=== PATIENT | female | born 1950 | race Caucasian/White ===

== ENCOUNTER 2017-11-12 04:52 | Emergency (ER) | payer MEDICARE, SELFPAY ==
[2017-11-12 04:52] VITALS: BP 138/77; PULSE 59; RESP 16; TEMP 36.5; O2SAT 100; BMI 26.8
[2017-11-12 04:56] VITALS: O2SAT 98
--- NOTE | 2017-11-12 05:13 | RAD_ITS ---
STUDY: X-RAY - LEFT KNEE REASON FOR EXAM: Female, 66 years old. Fall down the steps yesterday. Pain in the lateral side of the knee. TECHNIQUE: 3 view(s) of the knee. COMPARISON: None. FINDINGS: There is periarticular demineralization of the visualized distal femur, proximal tibia and fibula. Normal proximal tibiofibular articulation. There is no demonstrated fracture. There is mild degenerative arthrosis of the medial femorotibial compartment. There is mild degenerative arthrosis of the lateral femorotibial compartment. There is moderate degenerative arthrosis of the patellofemoral articulation. There is a soft tissue prominence in the suprapatellar region suggesting a small volume joint effusion. Anteriorly there is soft tissue edema/swelling of the knee. RAD/Knee 3 Views IMPRESSION: 1. Degenerative arthrosis. 2. No demonstrated acute osseous injury or dislocation. 3. Joint effusion. 4. Anteriorly/medially soft tissue swelling of the left knee. Electronically Signed: Wong Cook MD at 6:31 EDT Tel , Service support ,
--- NOTE | 2017-11-12 05:13 | RAD_ITS ---
STUDY: X-RAY - LUMBAR SPINE REASON FOR EXAM: Female, 66 years old. Fall down steps yesterday. Pain. TECHNIQUE: 3 view(s) of the lumbar spine were obtained. COMPARISON: None FINDINGS: Normal lumbar lordosis. There is no substantial scoliosis. There is a normal alignment of the vertebrae. There is generalized demineralization of the vertebral bodies. There is endplate sclerosis, marginal osteophyte formation and disc space narrowing at L2-L3 and L5-S1 levels. There is no demonstrated fracture. There is lumbosacral mild degenerative facet arthrosis. Possible neural foraminal stenosis at L5-S1. The soft tissue structures are unremarkable. Increased visualized colonic stool volume. RAD/Lumbar Spine 2 or 3 Views IMPRESSION: 1. Degenerative changes of the spine, as detailed above. 2. No demonstrated lumbar vertebral fracture or subluxation. Electronically Signed: Wong Cook MD at 6:40 EDT Tel , Service support ,
--- NOTE | 2017-11-12 05:15 | ED.VISSUMM ---
- ER Visit Summary Date of Service: 11/12/17 Chief Complaint: Fall with lower back and left knee pain History of Present Illness: The patient is a 66 F no significant past medical history. Has had a prior hysterectomy. Is currently on no medications. She was walking outside down wooden steps to feed her cats. She slipped missed a step and landed at the bottom. Patient complaining of pain to her low back and left knee. Denies hitting her head. No LOC. She is on no blood thinners. She denies neck pain. She denies any chest or abdominal pain. This occurred Monday afternoon. Physical Examination: Well-appearing older female. Vital signs are stable afebrile. Pulse ox 90% on room air no signs of hypoxia. HEENT exam is atraumatic. Pupils round reactive to light. There is no signs of trauma to her face or scalp. Is nontender. C-spine and T-spine are nontender. She has mild LS-spine tenderness. No ecchymosis or bruising. She has full range of motion to her neck trachea is nontender. Lungs clear to auscultation bilaterally. Heart regular rate and rhythm no murmur. Chest wall is nontender posterior ribs are nontender. There is no ecchymosis or bruising or subcu air. Abdomen is soft and nontender. No signs of trauma. Pelvic girdle intact. She is moving all 4 extremities. They are neurovascularly intact. There is no deformities. She has full range of motion of both upper extremities and 5 out of 5 production planner strength bilaterally with normal touch sensation. The lower extremities the right lower extremities unremarkable left hip ankle and foot are nontender neurovascular intact with full range of motion. She has mild tenderness to her left lateral knee. There is no gross bony deformity. No swelling or effusion. She is able to flex and extend at the left knee. The extensor mechanism is intact. Neurologic exam is normal. GCS of 15. She is awake alert following commands. Has no motor deficits. Test Results: LS-spine shows no acute fracture. No acute injury. Chronic changes. Patient also had a left knee x-ray which showed some arthritic changes but no acute process. No fracture or dislocation. Emergency Department Course and Treatment: Clinically the patient looks good. She took a fall on Monday. We are obtaining x-rays. She did not want anything currently for pain. Treatment Plan: Repeat exam patient is doing well at 05 32. He will be discharged to home. Disposition: Discharge Impression: Acute fall down several steps Lumbar contusion Left knee contusion / sprain This note was generated with [employer] dictation software. It may contain incorrect words, spelling, and punctuation that were not noted in review of the chart prior to signing ED Disposition - Plan for ED Patient: Chief Complaint: Fall Referrals: Rosalba Akins MD [Primary Care Provider] -
--- NOTE | 2017-11-12 05:33 | ED.DEP ---
ED Disposition - Plan for ED Patient: Disposition: Home or Assisted Living Chief Complaint: Fall Instructions: ED Contusion Back, ED Sprain Knee Referrals: Rosalba Akins MD [Primary Care Provider] - 1 Week if not improving Additional Instructions: Ice all sore areas down. To decrease pain and inflammation. Tylenol and Motrin for pain and inflammation. Follow-up your primary care physician if not improving or return to ER feeling worse.
[2017-11-12 05:41] VITALS: PULSE 66; RESP 16; O2SAT 96
== END 2017-11-12 05:41 | disposition home or self-care (01) ==
PROVIDERS: Emergency Provider Emergency Medicine; Family Provider Internal Medicine; PCP Internal Medicine
DX: S83.92XA Sprain of unspecified site of left knee, initial encounter (principal); S30.0XXA Contusion of lower back and pelvis, initial encounter; S80.02XA Contusion of left knee, initial encounter; W10.9XXA Fall (on) (from) unspecified stairs and steps, initial encounter; Y93.01 Activity, walking, marching and hiking; Y92.9 Unspecified place or not applicable; Y99.9 Unspecified external cause status; Z90.710 Acquired absence of both cervix and uterus
CPT/HCPCS: 72100; 73562; 99282

== ENCOUNTER → 2018-02-26 15:30 | Outpatient (CLI) | payer MEDICARE, SELFPAY ==
[2018-02-26 15:42] LABS: Absolute Lymphocyte Count 1.52 X10^3/ul (0.83-4.51); Absolute Neutrophil Count 4.3 X10^3/uL (2.0-7.7); Basophil# 0.05 X10^3/uL; Basophil% 0.8 % (0-1); Eosinophil# 0.13 X10^3/uL; Hematocrit 36.4 % (37-47); Hemoglobin 11.9 g/dl (12.0-15.0); Lymphocyte # 1.52 X10^3/ul (4.0); Lymphocyte % 23.9 % (19-41); Mean Corp Hgb Conc 32.7 g/gl (32-36); Mean Corpuscular Hgb 30.6 pg (27.0-32.0); Mean Corpuscular Volume 93.6 fL (81-99); Mean Platelet Vol. 9.4 fl (6.2-12.0); Monocyte# 0.38 X10^3/uL; Neutrophil # 4.26 X10^3/uL (2.7-7.7); Neutrophil % 67.1 % (47-70); POSITIVE COUNT NO; POSITIVE DIFFERENTIAL NO; POSITIVE MORPHOLOGY NO; Platelet Count 284 K/mm3 (150-450); RBC Distribution Width CV 13.9 % (11.6-14.6); RBC Distribution Width SD 47.4 fl (35.1-43.9); Red Blood Count 3.89 M/mm3 (4.2-5.4); White Blood Count 6.4 K/mm3 (4.4-11.0)
[2018-02-26 16:29] LABS: ALB/GLOB Ratio 1.2 RATIO (0.9-2.4); AST(SGOT) 30 U/L (15-37); Alanine Aminotransfer ALT/SGPT 46 U/L (13-56); Albumin, Serum 3.9 g/dL (3.2-5.0); Alkaline Phosphatase 73 U/L (45-117); Anion Gap 7 (5-15); BUN 20 mg/dL (7-18); BUN/Creat Ratio 18.7 RATIO (10-20); CRP < 2.90 mg/L (0.0-3.0); Calcium,Total 9.1 mg/dL (8.5-10.1); Chloride 110 mmol/L (98-107); Creatinine, Serum 1.07 mg/dL (0.55-1.02); EST Glomerular Filtration Rate 54 mL/min (>60); Est Glom Filt Rate - Afr Amer 66 mL/min (>60); Globulin 3.2 g/dL (2.2-4.2); Glucose 105 mg/dL (74-106); Potassium 3.6 mmol/L (3.5-5.1); Protein, Total 7.1 g/dL (6.4-8.2); Sodium Level 143 mmol/L (136-145)
[2018-02-26 16:32] LABS: Erythrocyte Sedimentation Rate 5 mm/hr (0-30)
== END ==
PROVIDERS: Family Provider Internal Medicine; PCP Internal Medicine
DX: M25.50 Pain in unspecified joint (principal)
CPT/HCPCS: 80053; 85025; 85652; 86140

== ENCOUNTER 2018-05-09 09:10 | Emergency (ER) | payer MEDICARE, SELFPAY ==
[2018-05-09 09:11] VITALS: BP 158/75; PULSE 58; RESP 19; TEMP 37.3; O2SAT 100; BMI 27.3
--- NOTE | 2018-05-09 09:32 | EKG12_ITS ---
Test Reason : NUMBNESS Blood Pressure : / mmHG Vent. Rate : 052 BPM Atrial Rate : 052 BPM P-R Int : 156 ms QRS Dur : 094 ms QT Int : 464 ms P-R-T Axes : 031 014 001 degrees QTc Int : 431 ms Sinus bradycardia Otherwise normal ECG Confirmed by RICKIE MINAYA, GAVIN ([id number]), assignment editor KAMI SESAY ([id number]) on 05/11/2018 1:23:31 PM Referred By: JAZIEL Confirmed By:GAVIN DAMIAN MD
--- NOTE | 2018-05-09 09:32 | CT_ITS ---
STUDY: CT BRAIN WITHOUT CONTRAST REASON FOR EXAM: Female, 67 years old. Left arm numbness. Hypertension. RADIATION DOSAGE (If Supplied By Facility): CTDIvol = ( 44.99 ) mGy, DLP = ( 745.49 ) mGycm TECHNIQUE: Transaxial CT imaging of the brain was performed without administration of intravenous contrast material. Individualized dose optimization techniques were used for this CT. COMPARISON: None. FINDINGS: Normal soft tissue structures. Normal calvarium. Normal size ventricles and extra-axial spaces for the patient's age. Normal white matter tracts of the cerebral hemispheres. Normal basal ganglia and thalami. Normal brainstem. Normal cerebellum. There is no intracranial hemorrhage. There are no findings of an acute ischemic infarction. Minimal mucosal thickening of the medial wall of the left maxillary sinus. CT/Brain/Head without Contrast IMPRESSION: Minimal mucosal thickening of the medial wall of the left maxillary sinus. Electronically Signed: Flash Moody MD at 10:34 EDT Tel [phone], Service support ,
--- NOTE | 2018-05-09 09:32 | RAD_ITS ---
STUDY: X-RAY CHEST REASON FOR EXAM: Female, 67 years old. Cough. TECHNIQUE: PA and lateral views of the chest. COMPARISON: None. FINDINGS: Hyperinflation. Scattered calcified granulomas more prominent on the right side. There is no demonstrated pleural abnormality. Normal size heart. Normal mediastinum and adalgisa. Normal visualized pulmonary arteries. There is atherosclerotic tortuosity of the aortic arch and descending thoracic aorta. There are diffuse degenerative changes of the visualized thoracic spine. Normal visualized ribs, clavicles, and shoulders. There is no demonstrated abnormality of the visualized soft tissue structures of the upper abdomen. RAD/Chest PA and Lateral IMPRESSION: Hyperinflation. No acute abnormality is seen. Electronically Signed: Flash Moody MD at 10:36 EDT Tel [phone], Service support ,
--- NOTE | 2018-05-09 09:33 | CT_ITS ---
STUDY: CT CERVICAL SPINE WITHOUT CONTRAST REASON FOR EXAM: Female, 67 years old. Left arm numbness. Hypertension. RADIATION DOSAGE (If Supplied By Facility): CTDIvol = ( 18.61 ) mGy, DLP = ( 352.09 ) mGycm TECHNIQUE: High resolution transaxial imaging was performed without contrast material. Sagittal and coronal images were reconstructed. Individualized dose optimization techniques were used for this CT. COMPARISON: None FINDINGS: Normal craniovertebral junction. There are degenerative changes of the anterior atlantoaxial articulation. Normal odontoid process. Normal cervical lordosis. Normal vertebral bodies and posterior osseous elements. C2-3: Normal endplates. Normal disc height and morphology. Normal central canal and intervertebral neuroforamina. C3-4: Normal endplates. Normal disc height and morphology. Normal central canal and intervertebral neuroforamina. C4-5: Moderate degree of disc space narrowing with spondylosis. Uncovertebral arthrosis. Mild degree of bilateral neural foraminal stenosis worse on the right side. C5-6: Mild degree of disc space narrowing. Minimal anterior osteophyte formation. No significant stenosis seen. C6-7: Moderate degree of disc space narrowing with spondylosis. Uncovertebral arthrosis. Moderate degree of bilateral neural foraminal stenosis slightly worse on the left side. Normal visualized soft tissue structures. CT/Spine Cervical without Contras IMPRESSION: Multilevel degenerative changes, as described above. Electronically Signed: Flash Moody MD at 10:33 EDT Tel [phone], Service support ,
--- NOTE | 2018-05-09 09:37 | ED.VISSUMM ---
- ER Visit Summary Date of Service: 05/09/18 Chief Complaint: Pins and needles sensation from the neck down History of Present Illness: The patient is a 67 F who states that for the past week she has had a pins and needle sensation in her body from the neck down. Patient denies any muscle weakness or balance issues. She notes an intermittent headache. No trauma. No vision, hearing, swallowing/speaking, urinary, bowel changes. No chest pain or shortness of breath. She denies any history of optic neuritis urinary retention. No rashes. No exertional issues. She notes a slight weight gain. No rashes. Physical Examination: Afebrile vital signs are stable Gen: Well-nourished well-developed Head: Normocephalic atraumatic Eyes: Perrl EOMI ENT: TMs clear no rhinorrhea moist mucous membranes Neck: Supple no lymphadenopathy no JVD nontender CVS: Regular rate rhythm no murmurs normal S1-S2 Respiratory: No distress clear to auscultation bilaterally chest nontender Abdomen: Soft nontender nondistended normal bowel sounds no masses Back: Nontender Extremity: Nontender no edema Skin: Normal color no rash Neuro: alert orientated ?3 CN II-XII intact normal strength sensation reflexes gait cerebellar Psych: Normal affect normal mood Test Results: CBC CMP were normal. EKG showed a sinus bradycardia. CT of the head and cervical spine show degenerative changes. Emergency Department Course and Treatment: I do not see anything emergent going on today and she has no focal neurologic deficit to warrant emergent MRI. I would encourage her to follow-up with her primary care physician and if symptoms persist she may need further neurologic evaluation. Patient is comfortable with her plan Impression: 1. Paresthesias This note was generated with [employer] dictation software. It may contain incorrect words, spelling, and punctuation that were not noted in review of the chart prior to signing ED Disposition - Plan for ED Patient: Disposition: Home or Assisted Living Chief Complaint: Numb/Ting Instructions: ED Paraesthesias Referrals: Rosalba Akins MD [Primary Care Provider] - 1 Week
[2018-05-09 10:01] LABS: Absolute Lymphocyte Count 1.62 X10^3/ul (0.83-4.51); Absolute Neutrophil Count 3.2 X10^3/uL (2.0-7.7); Basophil# 0.07 X10^3/uL; Basophil% 1.3 % (0-1); Eosinophil# 0.09 X10^3/uL; Eosinophils% 1.7 % (0-5); Hematocrit 39.8 % (37-47); Hemoglobin 13.2 g/dl (12.0-15.0); Lymphocyte # 1.62 X10^3/ul (4.0); Lymphocyte % 29.9 % (19-41); Mean Corp Hgb Conc 33.2 g/gl (32-36); Mean Corpuscular Hgb 31.3 pg (27.0-32.0); Mean Corpuscular Volume 94.3 fL (81-99); Mean Platelet Vol. 9.1 fl (6.2-12.0); Monocyte# 0.41 X10^3/uL; Monocyte% 7.6 % (0-10); Neutrophil # 3.22 X10^3/uL (2.7-7.7); Neutrophil % 59.3 % (47-70); POSITIVE COUNT NO; POSITIVE DIFFERENTIAL NO; POSITIVE MORPHOLOGY NO; Platelet Count 307 K/mm3 (150-450); RBC Distribution Width CV 12.6 % (11.6-14.6); RBC Distribution Width SD 42.5 fl (35.1-43.9); Red Blood Count 4.22 M/mm3 (4.2-5.4); White Blood Count 5.4 K/mm3 (4.4-11.0)
[2018-05-09 10:28] LABS: ALB/GLOB Ratio 1.1 RATIO (0.9-2.4); AST(SGOT) 24 U/L (15-37); Alanine Aminotransfer ALT/SGPT 30 U/L (13-56); Alkaline Phosphatase 84 U/L (45-117); Anion Gap 12 (5-15); BUN 15 mg/dL (7-18); BUN/Creat Ratio 14.3 RATIO (10-20); Calcium,Total 9.7 mg/dL (8.5-10.1); Chloride 107 mmol/L (98-107); Creatinine, Serum 1.05 mg/dL (0.55-1.02); EST Glomerular Filtration Rate 56 mL/min (>60); Est Glom Filt Rate - Afr Amer 67 mL/min (>60); Estimated Creatinine Clearance 48.67 ml/min; Globulin 3.6 g/dL (2.2-4.2); Glucose 83 mg/dL (74-106); Potassium 3.8 mmol/L (3.5-5.1); Protein, Total 7.6 g/dL (6.4-8.2); Sodium Level 143 mmol/L (136-145)
[2018-05-09 10:50] VITALS: BP 125/67; PULSE 59; RESP 15; O2SAT 97
== END 2018-05-09 10:51 | disposition home or self-care (01) ==
PROVIDERS: Emergency Provider Emergency Medicine; Family Provider Internal Medicine; PCP Internal Medicine
DX: R20.2 Paresthesia of skin (principal); R00.1 Bradycardia, unspecified; R05 Cough; R51 Headache; R63.5 Abnormal weight gain
CPT/HCPCS: 70450; 71046; 72125; 80053; 84484; 85025; 93005; 99283; A4216

== ENCOUNTER 2020-06-27 23:32 | Emergency (ER) | payer MEDICARE, SELFPAY ==
[2020-06-27 23:33] VITALS: BP 157/86; PULSE 63; RESP 16; TEMP 36.7; O2SAT 100; BMI 28.0
[2020-06-27 23:49] LABS: Absolute Lymphocyte Count 2.05 X10^3/uL (0.83-4.51); Basophil# 0.09 X10^3/uL; Basophil% 1.3 % (0-1); Eosinophil# 0.18 X10^3/uL; Eosinophils% 2.6 % (0-5); Hemoglobin 12.9 g/dL (12.0-15.0); Lymphocyte # 2.05 X10^3/ul (4.0); Lymphocyte % 29.6 % (19-41); Mean Corp Hgb Conc 32.3 g/dL (32-36); Mean Corpuscular Hgb 31.2 pg (27.0-32.0); Mean Corpuscular Volume 96.9 fL (81-99); Mean Platelet Vol. 8.7 fl (6.2-12.0); Monocyte# 0.61 X10^3/uL; Monocyte% 8.8 % (0-10); NRBC Flagged by Analyzer 0 % (0-5); Neutrophil # 3.98 X10^3/uL (2.7-7.7); Neutrophil % 57.6 % (47-70); Platelet Count 316 K/mm3 (150-450); RBC Distribution Width CV 12.3 % (11.6-14.6); RBC Distribution Width SD 44.2 fl (35.1-43.9); Red Blood Count 4.13 M/mm3 (4.2-5.4); White Blood Count 6.9 K/mm3 (4.4-11.0)
[2020-06-28 00:23] LABS: ALB/GLOB Ratio 1.1 RATIO (0.9-2.4); AST(SGOT) 24 U/L (15-37); Alanine Aminotransfer ALT/SGPT 31 U/L (13-56); Albumin, Serum 3.8 g/dL (3.2-5.0); Alkaline Phosphatase 110 U/L (45-117); Anion Gap 6 (5-15); BUN 17 mg/dL (7-18); BUN/Creat Ratio 16.8 RATIO (10-20); Calcium,Total 9.2 mg/dL (8.5-10.1); Chloride 110 mmol/L (98-107); Creatinine, Serum 1.01 mg/dL (0.55-1.02); EST Glomerular Filtration Rate 58 mL/min (>60); Est Glom Filt Rate - Afr Amer 70 mL/min (>60); Estimated Creatinine Clearance 49.21 ml/min; Globulin 3.4 g/dL (2.2-4.2); Glucose 108 mg/dL (74-106); Potassium 3.6 mmol/L (3.5-5.1); Protein, Total 7.2 g/dL (6.4-8.2); Sodium Level 142 mmol/L (136-145)
[2020-06-28 00:25] VITALS: BP 158/98; BP 174/95; BP 183/89; PULSE 59; PULSE 64
[2020-06-28 00:27] LABS: Prothrombin Time (Protime)PT. 12.6 SECONDS (11.7-14.9)
[2020-06-28 00:28] LABS: Partial Thromboplast Time 28.4 Seconds (24.1-36.2)
[2020-06-28 00:35] VITALS: RESP 16
[2020-06-28 01:18] VITALS: BP 160/83; PULSE 58; RESP 16; O2SAT 100
--- NOTE | 2020-06-28 02:11 | ED.DCSUM_ITS ---
- ER Visit Summary Date of Service: 06/28/20 Chief Complaint: Rectal bleeding History of Present Illness: The patient is a 69 F who presents with rectal bleeding that is been constant for the past 2 days. Patient noted bright red blood in her stools today. Patient states she also passed some clots today. Patient denies any abdominal pain. Patient denies any nausea or vomiting. Patient denies any dysuria or hematuria. Patient states nothing makes it better or worse. Patient denies any fevers or chills. Patient states she has a history of hemorrhoids. Physical Examination: Vital signs are stable. Patient is afebrile. Patient is in no acute distress. Oral mucosa is pink and moist. Neck is supple. Trachea is midline. There is no JVD noted. Heart was regular rate and rhythm. Lungs are clear and equal bilaterally. Abdomen is soft. Bowel sounds are normal. There is no tenderness. There is no rebound or guarding noted. Rectal exam showed minimal stool. There is no bright red blood noted. Skin is warm dry. Cranial nerves II through XII are intact. There are no focal motor or sensory deficits noted. Extremities are intact. There is no calf tenderness or edema. Test Results: CBC was normal. Comprehensive metabolic profile was within normal limits. PT with INR and PTT were normal. Stool was positive for occult blood. Emergency Department Course and Treatment: Patient was given IV fluids. Patient is feeling better on reevaluation. Patient was advised that this is a stable lower gastrointestinal bleed. Patient will be able to be discharged home. Patient was instructed to follow-up with her primary care physician in 3 to 5 days. Patient understood and was agreeable with the plan. All questions were answered. Disposition: Discharge home Impression: Rectal bleeding This note was generated with [employer] dictation software. It may contain incorrect words, spelling, and punctuation that were not noted in review of the chart pr ior to signing ED Disposition - Plan for ED Patient: Disposition: Home or Assisted Living Diagnosis: Rectal bleeding Instructions: ED Hematochezia Stable Referrals: Rosalba Akins MD [Primary Care Provider] - 2 Days
[2020-06-28 02:21] VITALS: BP 129/66; PULSE 75; RESP 16; O2SAT 96
== END 2020-06-28 02:22 | disposition home or self-care (01) ==
PROVIDERS: Emergency Provider Emergency Medicine; PCP Internal Medicine
DX: K62.5 Hemorrhage of anus and rectum (principal); Z87.19 Personal history of other diseases of the digestive system
CPT/HCPCS: 80048; 80053; 82274; 85025; 85610; 85730; 99284; A4216

== ENCOUNTER 2022-08-05 14:49 | Emergency (ER) | payer MEDICARE, SELFPAY ==
[2022-08-05 14:49] VITALS: BP 167/107; PULSE 64; RESP 16; TEMP 36.1; O2SAT 99; BMI 27.3
--- NOTE | 2022-08-05 15:15 | CT_ITS ---
STUDY: CT BRAIN WITHOUT CONTRAST REASON FOR EXAM: Female, 71 years old. Fall RADIATION DOSAGE (If Supplied By Facility): CTDIvol = ( 44.99 ) mGy, DLP = ( 796.11 ) mGycm TECHNIQUE: Transaxial CT imaging of the brain was performed without administration of intravenous contrast material. Individualized dose optimization techniques were used for this CT. COMPARISON: No relevant priors. FINDINGS: Normal soft tissue structures. Normal calvarium. Normal size ventricles and extra-axial spaces for the patient''s age. Normal white matter tracts of the cerebral hemispheres. Normal basal ganglia and thalami. Normal brainstem. Normal cerebellum. There is no intracranial hemorrhage. There are no findings of an acute ischemic infarction. Normal visualized paranasal sinuses. CT/Brain/Head without Contrast IMPRESSION: No acute abnormal intracranial finding. Electronically Signed: Sam Whiteside MD at 16:08 EST ,
--- NOTE | 2022-08-05 15:15 | CT_ITS ---
STUDY: CT ABDOMEN AND PELVIS WITHOUT CONTRAST REASON FOR EXAM: Female, 71 years old. Upper abdominal pain RADIATION DOSAGE (If Supplied By Facility): CTDIvol = ( 20.52 ) mGy, DLP = ( 1071.42 ) mGycm TECHNIQUE: Transaxial images were obtained from the dome of the diaphragm to the symphysis pubis without oral contrast, and without intravenous contrast. Sagittal and coronal images were reconstructed. Individualized dose optimization techniques were used for this CT. COMPARISON: None. FINDINGS: The visualized lung bases are unremarkable. The visualized portions of the heart are within normal limits. Normal liver. Normal gallbladder and extrahepatic biliary system. There are multiple benign calcified granulomata of the spleen. Normal pancreas. Normal bilateral adrenal glands. Normal right kidney. Normal left kidney. Normal visualized stomach. Normal small intestine. Normal colon. There is non-visualization of the appendix. Normal abdominal aorta. Normal inferior vena cava. Normal retroperitoneum. Normal urinary bladder. There is absence of the uterus consistent with a prior hysterectomy. Normal abdominal wall. Thoracolumbar spine degenerative change. CT/Abdomen/Pelvis without Cont IMPRESSION: No acute abnormal finding in the abdomen or pelvis. Electronically Signed: Sam Whiteside MD at 16:14 [facility] ,
--- NOTE | 2022-08-05 15:15 | EKG12_ITS ---
Test Reason : Blood Pressure : / mmHG Vent. Rate : 054 BPM Atrial Rate : 054 BPM P-R Int : 154 ms QRS Dur : 100 ms QT Int : 464 ms P-R-T Axes : 052 019 006 degrees QTc Int : 440 ms Sinus bradycardia Otherwise normal ECG Confirmed by JAYLENE MINAYA, CHRISTIANO ([id number]), news editor NIRAJ GONCALVES ([id number]) on 08/09/2022 11:11:13 AM Referred By: MP Confirmed By:LALO MARIEE MD
--- NOTE | 2022-08-05 15:16 | EX.ED.DYSGE1 ---
HPI History of Present Illness Chief Complaint: Abd Pain Informant: patient Onset/Context/Timing Onset: Days Context: Gradual Onset Timing: Intermittent Current Severity: Mild Maximum Severity: Mild Narrative Narrative: Patient presents secondary to upper abdominal pain. She states that she was sent in from the [facility] secondary to intermittent upper abdominal pain for the past couple of days. She denies fever or chills. No nausea, vomiting, or diarrhea. No urinary symptoms. She states that when she was leaving the clinic she tripped and fell. She does not remember the details from the fall but does not believe she hit her head or lost consciousness. She complained of pain to bilateral ankles but states she is able to ambulate without difficulty. She did tell nursing staff that she been having memory problems, not just since the fall but ongoing. [facility] Medical History (Updated 08/05/22 @ 16:[address] Leticia Chung MD) Fibromyalgia Home Medications No Known/Unobtainable [No Known Home Medications] 04/14/17 [History Last Taken Unknown] Allergy/AdvReac Type Severity Reaction Status Date / Time Sulfa (Sulfonamide Allergy Rash Verified 08/05/22 14:49 Antibiotics) Social History Smoking Status: Never smoker ROS ROS ED Constitutional Constitutional ED: Denies chills or fever(s) Eyes Eyes: Denies change in vision or discharge from eye(s) ENT ENT ED: Denies discharge from eye(s), rhinorrhea or sore throat Cardiovascular Cardiovascular: Denies chest pain or palpitations Respiratory/Chest Respiratory/Chest: Denies cough or dyspnea Gastrointestinal Gastrointestinal: Reports abdominal pain; Denies diarrhea, nausea or vomiting Genitourinary Genitourinary ED: Denies difficulty urinating or dysuria Musculoskeletal Musculoskeletal: Reports extremity pain; Denies back pain Integumentary Denies Abrasions or rash Neurologic Neurologic: Denies headache(s) or weakness Psychiatric Psychiatric: Denies anxiety or depression Allergic/Immunologic Allergic/Immunologic ED: Denies lip swelling or urticaria EXAM Physical Exam Const Vital Signs: 08/05/22 14:49 Temperature 97 F L Temperature Source Temporal Pulse Rate 64 Respiratory Rate 16 Blood Pressure 167/107 H Blood Pressure Mean 127 Pulse Ox 99 Oxygen Delivery Method Room Air Positive well nourished and well developed General Appearance ED: well developed HEENT Reports normocephalic and head/scalp atraumatic Eyes PERRL and EOMs intact bilaterally Neck supple Chest Wall inspection of chest normal and palpation of chest normal Resp normal respiratory effort and clear to auscultation bilaterally Cardio regular rate and regular rhythm GI GI Narrative: Minimal epigastric tenderness. No guarding or rebound. Active bowel sounds are noted. Palpation: soft Extremity normal to inspection Neuro oriented x3 and no sensory deficits noted Sensorium / Orientation: alert Motor Exam: strength 5/5 throughout Psych mental status grossly normal Skin no rashes or lesions noted MDM MDM MDM Narrative Medical decision making narrative: Lab work obtained along with EKG and chest x-ray. CT flank ordered along with CT head. Lab Data Attestation: I reviewed the patient's lab results. Labs: Laboratory Results - last 24 hr 08/05/22 08/05/22 15:22 15:22 WBC 5.6 RBC 4.02 L Hgb 13.0 Hct 37.3 MCV 92.8 MCH 32.3 H MCHC 34.9 RDW Std Deviation 42.9 RDW Coeff of Rayo 12.6 Plt Count 280 MPV 9.0 Immature Gran % (Auto) 0.400 Neut % (Auto) 58.8 Lymph % (Auto) 28.3 [place] % (Auto) 8.9 Eos % (Auto) 2.5 Baso % (Auto) 1.1 H Absolute Neuts (auto) 3.3 Absolute Lymphs (auto) 1.59 Nucleated RBC % 0 Sodium 142 Potassium 3.4 L Chloride 110 H Carbon Dioxide 26.0 Anion Gap 6 BUN 15 Creatinine 1.01 Estim Creat Clear Calc 44.12 Est GFR (MDRD) Af Amer 69 Est GFR (MDRD) Non-Af 57 L BUN/Creatinine Ratio 14.9 Glucose 92 Calcium 9.1 Total Bilirubin 0.30 Direct Bilirubin 0.10 AST 18 ALT 26 Alkaline Phosphatase 74 Troponin I High Sens 6 Total Protein 6.7 Albumin 3.8 Globulin 2.9 Lipase 89 Radiography Chest X-Ray - ED: 1 View, Read by ED Physician, Normal, Heart, Lungs and Mediastinum Diagnostic Testing: Clinical Impression(s) from Imaging Studies Abdomen/Pelvis CT 08/05/22 15:15 IMPRESSION: No acute abnormal finding in the abdomen or pelvis. Electronically Signed: Sam Whiteside MD at 16:14 EST , Brain CT 08/05/22 15:15 IMPRESSION: No acute abnormal intracranial finding. Electronically Signed: Sam Whiteside MD at 16:08 EST , Chest X-Ray 08/05/22 16:00 IMPRESSION: No acute abnormal cardiopulmonary finding. Electronically Signed: Sam Whiteside MD at 16:19 EST , EKG Initial EKG: Attestation: I personally reviewed and interpreted this EKG as follows: Interpretation: Sinus Bradycardia (Sinus bradycardia at 54 bpm. No acute ischemia.) Treatment and Re-Evaluation Narrative: CBC and chemistry studies remarkable only for slightly low potassium at 3.4. LFTs and lipase are normal. Troponin is normal. EKG reveals no acute ischemia. Chest x-ray per my interpretation is normal. CT scan of the head and abdomen/pelvis are unremarkable for acute findings. Test results are discussed with the patient and she is reassured with this. I did recommend trying Prilosec or Pepcid [id number] to see if this helps her abdominal pain over the next several days. Return instructions are given. Discharge Plan Triage Chief Complaint: Abd Pain ED Provider: Leticia Chung Dx/Rx/DC Orders Clinical Impression: Abdominal pain, Fall Instructions: ED Abdominal Pain Unkn Cause Fem Prescriptions: No Action No Known Home Medications Primary Care Provider: Rosalba Akins Referrals: Rosalba Akins MD [Primary Care Provider] - 1 Week if not improving Activity Restrictions/Additional Instructions: You can try Pepcid or Prilosec [id number] to see if this helps with your upper abdominal pain. Take it regularly for the next couple weeks. Disposition Disposition: Home, Self Care
[2022-08-05 15:37] LABS: Absolute Lymphocyte Count 1.59 X10^3/uL (0.83-4.51); Absolute Neutrophil Count 3.3 X10^3/uL (2.0-7.7); Basophil# 0.06 X10^3/uL; Basophil% 1.1 % (0-1); Eosinophil# 0.14 X10^3/uL; Eosinophils% 2.5 % (0-5); Hematocrit 37.3 % (37-47); Lymphocyte # 1.59 X10^3/ul (0.83-4.51); Lymphocyte % 28.3 % (19-41); Mean Corp Hgb Conc 34.9 g/dL (32-36); Mean Corpuscular Hgb 32.3 pg (27.0-32.0); Mean Corpuscular Volume 92.8 fL (81-99); Monocyte% 8.9 % (0-10); NRBC Flagged by Analyzer 0 % (0-5); Neutrophil % 58.8 % (47-70); Platelet Count 280 K/mm3 (150-450); RBC Distribution Width CV 12.6 % (11.6-14.6); RBC Distribution Width SD 42.9 fl (35.1-43.9); Red Blood Count 4.02 M/mm3 (4.2-5.4); White Blood Count 5.6 K/mm3 (4.4-11.0)
[2022-08-05 16:00] LABS: AST(SGOT) 18 U/L (15-37); Alanine Aminotransfer ALT/SGPT 26 U/L (13-56); Albumin, Serum 3.8 g/dL (3.2-5.0); Alkaline Phosphatase 74 U/L (45-117); Anion Gap 6 (5-15); BUN 15 mg/dL (7-18); BUN/Creat Ratio 14.9 RATIO (10-20); Calcium,Total 9.1 mg/dL (8.5-10.1); Chloride 110 mmol/L (98-107); Creatinine, Serum 1.01 mg/dL (0.55-1.02); EST Glomerular Filtration Rate 57 mL/min (>60); Est Glom Filt Rate - Afr Amer 69 mL/min (>60); Estimated Creatinine Clearance 44.12 ml/min; Globulin 2.9 g/dL (2.2-4.2); Glucose 92 mg/dL (74-106); Lipase 89 U/L (73-393); Potassium 3.4 mmol/L (3.5-5.1); Protein, Total 6.7 g/dL (6.4-8.2); Sodium Level 142 mmol/L (136-145); Troponin-I HS 6 pg/mL (3.0-54.0)
--- NOTE | 2022-08-05 16:00 | RAD_ITS ---
STUDY: X-RAY CHEST REASON FOR EXAM: Female, 71 years old. Abdominal pain TECHNIQUE: Portable, upright, AP chest x-ray COMPARISON: 05/09/2018 FINDINGS: The lungs are clear and expanded. Right lung calcified granuloma redemonstrated. There is no demonstrated pleural abnormality. Normal size heart. Normal mediastinum and adalgisa. Normal visualized pulmonary arteries. There is atherosclerotic tortuosity of the aortic arch and descending thoracic aorta. There is no demonstrated abnormality of the visualized soft tissue structures of the upper abdomen. RAD/Chest 1 View (Portable) IMPRESSION: No acute abnormal cardiopulmonary finding. Electronically Signed: Sam Whiteside MD at 16:19 EST ,
[2022-08-05 17:04] VITALS: BP 157/92; PULSE 76; RESP 15; O2SAT 96
== END 2022-08-05 17:05 | disposition home or self-care (01) ==
PROVIDERS: Emergency Provider Emergency Medicine; PCP Internal Medicine; Visit Provider Emergency Medicine
DX: R10.9 Unspecified abdominal pain (principal); M25.571 Pain in right ankle and joints of right foot; M25.572 Pain in left ankle and joints of left foot; R41.3 Other amnesia
CPT/HCPCS: 70450; 71045; 74176; 80048; 80076; 83690; 84484; 85025; 93005; 99284; A4216